=== PATIENT | male | born 1955 | race Caucasian/White ===

== ENCOUNTER 2017-02-22 18:43 | Inpatient (IN) | payer BC ==
[~2017-02-22] VITALS: Ht 182.9 cm; Wt 115.3 kg
--- NOTE | ~2017-02-22 | CO ---
ADMIT: 02/22/2017 RM/LOC: 629 [facility] MR#: [id number] [address] [facility] [address] [place] [id number] JESUS TODD [address] [place] [address] Consultation SEX: M AGE: 61 : 1955 Corrected: 02/23/2017 0906 mindy DATE OF CONSULTATION: 02/23/2017 ATTENDING PHYSICIAN: Luca Sloan CONSULTING PHYSICIAN: Eddie Barkley MD REASON FOR CONSULTATION: Chronic cholecystitis and symptomatic cholelithiasis. HISTORY OF PRESENT ILLNESS: This patient is a 61-year-old male, who sounds like he had been having some of these discomforts in his right upper quadrant, was seen by Dr. Sloan. I do not believe any ultrasound or anything was done. Labs all looked okay, but questioned whether this might be a gallbladder type symptoms. Asked to follow a low-fat diet. He ate 2 cheeseburgers from [employer] and got significant right upper quadrant pain. Came into the ER. CT scan shows multiple gallstones without a lot of complicating features. White count was 14.8. The rest of his LFTs otherwise currently looked okay. He is diabetic, had an elevated blood sugar in the 300s. I have discussed with him, at this point, the procedure of laparoscopic possible open cholecystectomy what it entails, risks, benefits, possible complications, and alternatives. He understands and wishes to proceed. PAST MEDICAL HISTORY: Significant for diabetes, hypertension. MEDICATIONS: He takes: 1. Benazepril 10 mg a day. 2. Actos 1 tab a day. 3. Metformin 4 tabs daily. 4. Multivitamin. 5. Baby aspirin. 6. Potassium. PAST SURGICAL HISTORY: He has had orthopedic carpal tunnels and ligament surgery and shoulder surgery. Denies any abdominal surgeries. ALLERGIES: DENIES ANY MEDICAL ALLERGIES. SOCIAL HISTORY: Denies significant tobacco, alcohol, or illicit drugs. FAMILY HISTORY: Otherwise noncontributory. REVIEW OF SYSTEMS: Positive for some right upper quadrant discomfort and pressure he says now, but it is not the pain it was last night. ADMIT: 02/22/2017 RM/LOC: 629 [facility] MR#: [id number] [address] [address] WILLJOHN JESUS Ofelia [address] [place] [address] Consultation SEX: M AGE: 61 : 1955 PHYSICAL EXAMINATION: GENERAL: He is alert, he is oriented, he is in no significant distress. EYES: His sclerae are nonicteric. Extraocular muscles are intact. CHEST: Clear. HEART: Regular rate and rhythm. ABDOMEN: Obese, soft. He does have pain in the right upper quadrant to palpation. No mass. No organomegaly. Positive bowel sounds. EXTREMITIES: No clubbing or cyanosis of the extremities. ASSESSMENT AND PLAN: Laparoscopic cholecystectomy. Eddie Barkley MD/ nena JOB #: [id number] CC: Luca Sloan, Attending Physician Luca Sloan, Family Physician Corrected: 02/23/2017 0906 mindy
--- NOTE | 2017-02-23 22:59 | ER ---
ADMIT: 02/22/2017 RM/LOC: 629 [facility] MR#: [id number] 2620 [facility] [address] [place] [id number] JESUS TODD [address] [place] [address] Emergency Room Report SEX: M AGE: 61 : 1955 DATE: 02/22/2017 TIME: 1842 Please refer to my T-sheet for complete H and P. HISTORY OF PRESENT ILLNESS: Briefly, the patient comes in with abdominal pain, started yesterday at 3:00. He is actually seen by Dr. Sloan, did blood work, things looked okay. He did fine this morning. He ate and drank a little bit of breakfast, but he avoided fatty foods and he ate a cheeseburger tonight and his pain came on severe, right upper quadrant, 8/10. He has vomited and nauseous. PHYSICAL EXAMINATION: VITAL SIGNS: Here blood pressure is 202/101, pulse 98, respirations 16, temp 98, saturating 93%. GENERAL: He is no acute distress. HEENT: Grossly normal. LUNGS: Clear. ABDOMEN: Soft, tender in the epigastric and right upper quadrant with some distention. EMERGENCY DEPARTMENT COURSE: He is given 1 L normal saline bolus, 4 of Zofran and 4 of morphine, he was feeling better. His chemistries all came back normal including liver function tests except glucose 317, lipase was normal. UA normal except greater than [address] scan, which revealed multiple gallstones, slight swelling of the gallbladder, otherwise negative test. At this point, I talked to Dr. Sloan and Dr. Barkley, will admit to the hospital. ASSESSMENT: 1. Abdominal pain. 2. Biliary colic. PLAN: Admit to the hospital. Hernan Mcdaniel MD/ nena JOB #: [id number] CC: Luca Sloan MD, Attending Physician Luca Sloan MD, Family Physician
[2017-02-24] MEDS ORDERED: GLUCOPHAGE1000 MG PO (20:06)
[2017-02-24] MEDS ORDERED: LOTENSIN10 MG PO (20:06)
[2017-02-24] MEDS ORDERED: ASA CHILDREN'S81 MG PO (20:07)
[2017-02-24] MEDS ORDERED: THERAPEUTIC MUL1 TAB PO (20:07)
[2017-02-24] MEDS ORDERED: ACTOS DPS15 MG PO (20:07)
[2017-02-24] MEDS ORDERED: MICRO-K DPS10 MEQ PO (20:07)
[2017-02-24] MEDS ORDERED: NORCO 5-325 TA1 EACH PO (20:08)
--- NOTE | 2017-03-05 08:01 | HP ---
ADMIT: 02/22/2017 RM/LOC: 629 [facility] MR#: [id number] [facility]#: [id number] [address] [address] JESUS TODD [address] [place] [address] History and Physical SEX: M AGE: 61 : 1955 DATE OF SERVICE: CHIEF COMPLAINT: Abdominal pain. HISTORY OF PRESENT ILLNESS: The patient is a 61-year-old, obese white male, who has had 2-3 days of abdominal pain. The pain began early in the morning on Sunday. He was actually seen by me in the office for this abdominal pain. Lab work at that time showed a very mildly elevated white blood cell count, but his liver enzymes and pancreatic enzymes were completely normal. He was instructed to stay on a clear liquid diet for a couple of days. His abdominal pain was accompanied by some diarrhea, nausea, and vomiting. It was suspected that he might have a little bit of stomach flu. He went home on Sunday and stuck to a clear liquid diet throughout the day. By , he was feeling a little bit better. He therefore decided to eat a couple of cheese burgers along with some pizza. After this particularly fatty meal, he had resumption of his abdominal pain in the upper abdomen. It became quite severe and radiated to the right upper quadrant. He has had some nausea and vomiting along with this. He came to the emergency room for evaluation on evening. CT scan of the abdomen done through the emergency department showed multiple gallstones within the gallbladder. Liver had some fatty infiltration. The patient was therefore admitted for symptomatic cholelithiasis. PAST MEDICAL HISTORY: PAST ILLNESSES: The patient has had: 1. Obstructive sleep apnea. 2. Hypertension. 3. Previous right-sided Bower's palsy. 4. Chronic low back pain. 5. Restless legs. 6. Hyperglyceridemia. 7. Erectile dysfunction. 8. Morbid obesity. 9. Poorly-controlled type 2 diabetes. PAST SURGICAL HISTORY: The patient has had a previous heart catheterization, previous right carpal tunnel surgery, and left 4th finger trigger finger surgery. MEDICATIONS: According to his office medication list, he has been on: 1. Benazepril 10 mg daily. 2. Metformin 1000 mg b.i.d. 3. Actos 40 mg once daily. 4. Aspirin 81 mg daily. 5. Men's multivitamin once daily. ALLERGIES: NO KNOWN MEDICAL ALLERGIES. SOCIAL HISTORY: The patient is and works full-time at [employer]. He is not a smoker and has never smoked. He admits to occasional alcohol use. ADMIT: 02/22/2017 RM/LOC: 629 [facility] MR#: [id number] [address] [address] [place] [address] History and Physical SEX: M AGE: 61 : 1955 No drug use. FAMILY HISTORY: There is no breast cancer in the family. Maternal grandfather did have some type of cancer. There is heart disease in patient's father and paternal grandmother. There is also diabetes in his mother, father, and paternal grandparents. Prostate cancer in his paternal grandfather. REVIEW OF SYSTEMS: GENERAL: The patient has had appetite loss and has currently not been feeling well for 2-3 days. Denies fevers or chills. HEENT: Denies sore throat, visual changes, difficulty swallowing, ear pain, or sinus symptoms. RESPIRATORY: No cough, shortness of breath, wheezing, or lung problems. CARDIOVASCULAR: History of hypertension, but no chest pain, palpitations, or previous heart disease. GASTROINTESTINAL: He has had abdominal distention and pain throughout the upper abdomen for 2-3 days. He has also had some diarrhea, nausea, and vomiting. No blood in his stools. No heartburn noted. MUSCULOSKELETAL: He has had some chronic back pain and elbow pain. No new muscle or joint aches or pains. ENDOCRINE: He has type 2 diabetes. No history of thyroid problems. PSYCHIATRIC: No depression or anxiety. NEUROLOGIC: No history of seizures or strokes. PHYSICAL EXAMINATION: VITAL SIGNS: Most recent vitals include a temp of 96.2, pulse 92 and regular, respiratory rate 20, blood pressure 128/74, O2 saturations 96% on room air. GENERAL: The patient is alert and oriented. Does not appear to be in acute distress at this time. Answers questions appropriately. HEENT: Ears clear bilaterally. Oropharynx moist without erythema or tonsillar enlargement. NECK: Supple without lymphadenopathy or JVD. No thyroid enlargement or tenderness. LUNGS: Clear bilaterally without wheezes, rhonchi, or rales. HEART: Regular rate and rhythm without murmur, rub, or gallop. ABDOMEN: Obese and distended in the upper abdomen region. He is tender in the right upper quadrant region. No masses palpated. EXTREMITIES: Functional range of motion and normal strength. No clubbing, cyanosis, or edema. NEUROLOGIC: No focal deficits. LABORATORY AND X-RAY DATA: Admission labs included a urinalysis which did not show any signs of infection, but did have greater than 1000 mg/dL of glucose. Admission white blood cell count was 14.8, hemoglobin 13.6, platelet count 150. Admission sodium 135, potassium 4.4, BUN 16, creatinine 1.2, glucose elevated at 317, total bilirubin 0.4, alkaline phosphatase 65, AST 26, ALT 43, lipase 301. Hemoglobin A1c elevated at 9.8. CT scan of the abdomen and pelvis showed fatty infiltration of the liver and multiple gallstones present ADMIT: 02/22/2017 RM/LOC: 629 [facility] MR#: [id number] [facility] [address] [address] WILLJESUS LOPEZ Ofelia [address] [place] [address] History and Physical SEX: M AGE: 61 : 1955 in the gallbladder. No evidence of pancreatitis. Repeat labs done the morning of 02/23 include a white blood cell count of 13.6, hemoglobin 13.5, platelet count 95. Sodium 137, potassium 3.8, BUN 10, creatinine 0.9, glucose 235, AST 15, ALT 35, alkaline phosphatase 57, total bilirubin 0.8, amylase 34, lipase 167, C-reactive protein 2.12. ASSESSMENT: 1. Symptomatic cholelithiasis. 2. Poorly-controlled type 2 diabetes (hemoglobin A1c 9.8). 3. Hypertension. 4. Morbid obesity. 5. Obstructive sleep apnea. PLAN: The patient has been admitted and is currently on morphine QUALITY ASSURANCE TECH for pain control, IV Zofran for nausea and vomiting, and sliding scale insulin for glucose control. His metformin is being held due to recent contrast use for his CT scan. I have started him on some IV Zosyn as well. Surgical consult will be obtained and we will plan on probable gallbladder removal. Luca Sloan MD/ nena JOB #: [id number] CC: Luca Sloan, Attending Physician Luca Sloan, Family Physician
--- NOTE | 2017-03-13 13:26 | OR ---
ADMIT: 02/22/2017 RM/LOC: [address] [place] [address] MR#: [id number] [address] [address] JESUS TODD Ofelia [address] [place] [address] Operative/Delivery Room Report SEX: M AGE: 61 : 1955 SURGERY DATE: 02/23/2017 SURGEON: Eddie Barkley MD PREOPERATIVE DIAGNOSES: Acute cholecystitis and cholelithiasis. POSTOPERATIVE DIAGNOSES: Acute cholecystitis and cholelithiasis. FINAL PATHOLOGY: Pending. PROCEDURE: Laparoscopic cholecystectomy. DISTRIBUTION ESTIMATOR: SHANE Schulz was necessary for adequate exposure, retraction, and completion of this case. ANESTHESIA: General endotracheal tube anesthesia. ESTIMATED BLOOD LOSS: 25 mL or less. INDICATION FOR PROCEDURE: Please see H and P. PROCEDURE IN DETAIL: After the risks, benefits, possible complications, and the alternatives had been explained, and informed consent had been obtained. The patient was taken back to the operating room, underwent general endotracheal anesthesia, and the surgical field was prepped and draped in a sterile manner. A supraumbilical incision was made. The Veress needle was inserted. The abdomen was insufflated with CO2. Once there was adequate insufflation, a 5 mm port was placed. The camera was placed through this port site. Under direct visualization, then placed a 10 mm epigastric and two 5 mm right upper quadrant ports. The gallbladder definitely acutely inflamed adhesions to it. So, it has been bothering him for a little while. It was raised superiorly and anteriorly, slowly cleaned these adhesions down and slowly kept dissecting down to where I could identify the cystic duct coming ADMIT: 02/22/2017 RM/LOC: 9 [facility] MR#: [id number] [address] [address] JESUS TODD [address] [place] [address] Operative/Delivery Room Report SEX: M AGE: 61 : 1955 directly off the gallbladder, seen in picture too. It was clipped proximally, distally, and divided. Behind this, the cystic artery was dissected out. It was clipped proximally, distally, and divided. Then, the gallbladder was slowly removed from the liver bed and electrocautery Endoshears. Prior to removing the gallbladder, I did have to drain it just so that I could grasp it without rupturing. It was placed in an EndoCatch bag and removed through the epigastric port site. Irrigated irrigation as possible. Liver bed appeared dry, seen in picture three. Injected 0.5% Marcaine for pain control in the incision sites. Closed the fascia of the epigastric port site with an 0-Polysorb suture using the suture passer, and then the skin was all closed with 4-0 Monocryl. He tolerated the procedure well, was extubated and taken to recovery room in stable and satisfactory condition. Eddie Barkley MD/ nena JOB #: [id number] CC: Luca Sloan, Attending Physician Luca Sloan, Family Physician
--- NOTE | 2017-04-11 07:54 | DS ---
ADMIT: 02/22/2017 RM/LOC: 629 [facility] MR#: [id number] [facility]#: [id number] [address] [address] JESUS TODD [address] [place] [address] General Discharge Summary SEX: M AGE: 61 : 1955 ADMISSION DATE: 02/22/2017 DISCHARGE DATE: 02/23/2017 PRIMARY DIAGNOSES: 1. Acute cholecystitis. 2. Symptomatic cholelithiasis. 3. Diabetes mellitus type 2 (hemoglobin A1c 9.8). 4. Hypertension. 5. Obesity. 6. Obstructive sleep apnea. CONSULTATIONS DURING THIS HOSPITALIZATION: General Surgery with Dr. Eddie Barkley. PROCEDURES DURING THIS HOSPITALIZATION: Laparoscopic cholecystectomy performed by Dr. Eddie Barkley on 02/23/2017. HISTORY OF PRESENT ILLNESS: The patient is a 61-year-old, obese white male, who had 2 to 3 days of abdominal pain. The pain began early in the morning on Sunday and was seen in the office by me for this pain. His lab work at that time initially showed a very mildly elevated white blood cell count, but his liver enzymes and pancreatic enzymes were completely normal. He was instructed to stay on a clear liquid diet for a couple of days. He went home on Sunday from our office and adhere to a clear liquid diet throughout the day and by he was feeling a bit better. Because his stomach was feeling better, he decided to eat a couple of cheese burgers along with some pizza. After this particularly fatty meal, he had resumption and worsening of his abdominal pain in the upper abdominal and right upper quadrant region. It became quite severe and radiated through the right upper quadrant and through to his right scapula. He had some nausea and vomiting along with this. He came to the emergency room for evaluation on evening, and a CT scan of the abdomen done through the emergency department showed multiple gallstones within the gallbladder. His liver also had some fatty infiltration. He was admitted for symptomatic cholelithiasis. LABORATORY AND X-RAY: Admission labs included a urinalysis, which did not show any signs of infection, but did have greater than 1000 mg/dL of glucose. White blood cell count at time of admission was 14.8, hemoglobin 13.6, and platelet count 150. Admission sodium 135, potassium 4.4, BUN 16, creatinine 1.2, glucose elevated at 317, total bilirubin 0.4, alkaline phosphatase 65, AST 26, ALT 43, lipase 301. Hemoglobin A1c elevated at 9.8. CT scan of the abdomen and pelvis showed fatty infiltration of the liver and multiple gallstones present in the gallbladder. No evidence of acute pancreatitis. Labs done in the morning of 02/23 included a white blood cell count of 13.6, hemoglobin 13.5, and platelet count 95. Sodium 137, potassium 3.5, BUN 10, creatinine 0.9, and glucose 235. AST 15, ALT 35, alkaline phosphatase 57, total bilirubin 0.8, amylase normal at 34, lipase normal at 167, C-reactive protein of 2.12. ADMIT: 02/22/2017 RM/LOC: 629 [facility] MR#: [id number] [address] [address] [facility] [address] [place] [address] General Discharge Summary SEX: M AGE: 61 : 1955 HOSPITAL COURSE: The patient was admitted on 02/22/2017 with symptomatic cholelithiasis and presumed acute cholecystitis. He was placed on IV fluids, IV Zosyn, and a morphine UTILITY PERSON for pain control. Zofran IV was given for nausea. His sugars were checked closely and a high dose Humalog sliding scale was ordered per protocol due to his elevated blood sugars and diabetes. General Surgery was consulted, and on 02/23/2017, he was taken to surgery and a laparoscopic cholecystectomy was performed. The patient had an unremarkable recovery and was doing well throughout the remainder of the day. He was therefore set up to be discharged to home in very stable condition later in the day on 02/23/2017. DISCHARGE INSTRUCTIONS: The patient was discharged to home on 02/23/2017 after having a laparoscopic cholecystectomy earlier in the day. MEDICATIONS AT TIME OF DISCHARGE: Included: 1. Benazepril 10 mg daily. 2. Actos daily. 3. Metformin 2 tabs b.i.d. 4. Multivitamin daily. 5. Baby aspirin 81 mg daily. 6. Potassium 1 tab daily. He is to follow up with Dr. Eddie Barkley as directed. Luca Sloan MD/ nena JOB #: [id number] CC: Luca Sloan MD, Attending Physician Luca Sloan MD, Family Physician Eddie Barkley MD
== END 2017-02-23 19:50 | disposition home or self-care (01) | DRG 419 ==
LOC: ER 18:43 → 6PED 20:59
PROVIDERS: ADMIT Family Medicine
PROC: 0FT44ZZ Resection of Gallbladder, Percutaneous Endoscopic Approach (ICD-10-PCS; principal; 2017-02-23)
DX: K80.00 Calculus of gallbladder with acute cholecystitis without obstruction (principal); E11.65 Type 2 diabetes mellitus with hyperglycemia; I10 Essential (primary) hypertension; E66.9 Obesity, unspecified; G47.33 Obstructive sleep apnea (adult) (pediatric); G89.29 Other chronic pain; M54.5 Low back pain; G25.81 Restless legs syndrome; Z79.82 Long term (current) use of aspirin; Z79.84 Long term (current) use of oral hypoglycemic drugs; Z68.34 Body mass index [BMI] 34.0-34.9, adult